=== PATIENT | male | born 1960 | race Hispanic/Latino ===

== ENCOUNTER 2017-03-18 08:26 | Emergency (ER) | payer SELFPAY ==
[2017-03-18 08:41] VITALS: BP 133/79
[2017-03-18] MEDS ORDERED: MOTRIN PO ONE (11:20)
--- NOTE | 2017-03-18 11:50 | XRay Report ---
Left knee 3 views: History: Pain and swelling. Findings: Minimal narrowing of the medial compartment and patellofemoral compartment knee joint. Sclerotic articular surface with early degenerative change. No fracture. No soft tissue calcification. No joint effusion. Impression: Mild degenerative changes medial and patellofemoral compartment knee joint. Incidentally noted deformity of the proximal diaphysis of fibula probably related to old injury.
--- NOTE | 2017-03-18 18:41 | Emergency Department Report ---
Entered by NGA MURRIETA, acting as scribe for NTAHALIE CONTEH NP. ED Lower Extremity HPI - General Chief Complaint: Extremity Injury, Lower Stated Complaint: KNEE PAIN Time Seen by Provider: 03/18/17 11:15 Source: patient Mode of arrival: Ambulatory Limitations: No Limitations - History of Present Illness Initial Comments: This is a 57 y/o male, nontoxic, well nourished in appearance, no acute signs of distress presents with chronic intermittent left knee pain x 1 week. Associated symptoms include swelling but he denies fever, chills, numbness, tingling, back pain, joint swelling, chest pain, SOB, cough, calf swelling and calf pain. Patient denies long car rides, recent travels, or recent hospital stays. Pain is described as aching, stabbing and 8/10 on a severity scale. Patient stated has been walking this past month more then usual. Denies any injury. No alleviating or aggravating factors. NKDA. STODDARD Complaint: other (left knee pain) Onset/Timin -: week(s) Injury: Knee: Left Place: home Severity: moderate Severity scale (0 -10): 8 Improves With: nothing Worsens With: nothing Associated Symptoms: ambulatory. denies: snap/pop sensation, swelling, numbness , tingling, unable to bear weight, able to partially bear weight - Related Data Previous Rx's Medication Instructions Recorded Last Taken Type Ibuprofen [Motrin 600 MG tab] 600 mg PO Q8H PRN #20 tablet 03/18/17 Unknown Rx predniSONE [Deltasone] 20 mg PO BID #10 tab 03/18/17 Unknown Rx Allergies Allergy/AdvReac Type Severity Reaction Status Date / Time acetaminophen Allergy Unknown Verified 12/20/15 08:42 [From Darvocet-N] propoxyphene napsylate Allergy Unknown Verified 12/20/15 08:42 [From Darvocet-N] ED Review of Systems Comment: All other systems reviewed and negative Constitutional: denies: chills, fever Eyes: denies: eye pain, eye discharge, vision change ENT: denies: ear pain, throat pain Respiratory: denies: cough, shortness of breath, wheezing Cardiovascular: denies: chest pain, palpitations Endocrine: no symptoms reported Gastrointestinal: denies: abdominal pain, nausea, diarrhea Genitourinary: denies: urgency, dysuria Musculoskeletal: denies: back pain, joint swelling, myalgia Skin: denies: rash, lesions Neurological: denies: numbness Psychiatric: denies: anxiety, depression Hematological/Lymphatic: denies: easy bleeding, easy bruising ED Past Medical Hx - Past Medical History Previous Medical History?: Yes Hx Hypertension: Yes - Surgical History Past Surgical History?: No - Social History Smoking Status: Current Some Day Smoker Substance Use Type: None - Medications Home Medications: Home Medications Medication Instructions Recorded Confirmed Last Taken Type Ibuprofen [Motrin 600 MG tab] 600 mg PO Q8H PRN #20 tablet 03/18/17 Unknown Rx predniSONE [Deltasone] 20 mg PO BID #10 tab 03/18/17 Unknown Rx ED Physical Exam - General Limitations: No Limitations General appearance: alert, in no apparent distress - Head Head exam: Present: atraumatic, normocephalic, normal inspection - Eye Eye exam: Present: normal appearance, PERRL, EOMI. Absent: scleral icterus, conjunctival injection, nystagmus, periorbital swelling, periorbital tenderness Pupils: Present: normal accommodation - ENT ENT exam: Present: normal exam, normal orophraynx, mucous membranes moist, TM's normal bilaterally, normal external ear exam - Neck Neck exam: Present: normal inspection, full ROM. Absent: tenderness, meningismus, lymphadenopathy, thyromegaly - Respiratory Respiratory exam: Present: normal lung sounds bilaterally. Absent: respiratory distress, wheezes, rales, rhonchi, stridor, chest wall tenderness, accessory muscle use, decreased breath sounds, prolonged expiratory - Cardiovascular Cardiovascular Exam: Present: regular rate, normal rhythm, normal heart sounds. Absent: bradycardia, tachycardia, irregular rhythm, systolic murmur, diastolic murmur, rubs, gallop - GI/Abdominal GI/Abdominal exam: Present: soft, normal bowel sounds. Absent: distended, tenderness, guarding, rebound, rigid, diminished bowel sounds - Rectal Rectal exam: Present: deferred - Extremities Exam Extremities exam: Present: normal inspection, full ROM, normal capillary refill. Absent: tenderness, pedal edema, joint swelling, calf tenderness - Expanded Lower Extremity Exam Left Hip exam: Present: normal inspection, full ROM. Absent: tenderness, swelling, abrasion, laceration, ecchymosis, deformity, crepidus, dislocation, erythema, external rotation, internal rotation, shortening Upper Leg exam: Present: normal inspection, full ROM. Absent: tenderness, swelling, abrasion, laceration, ecchymosis, deformity, crepidus, dislocation, erythema Knee exam: Present: normal inspection, full ROM, full knee extension. Absent: tenderness, swelling, abrasion, laceration, ecchymosis, deformity, crepidus, dislocation, erythema, effusion, pain w/ pronation/supination, posterior draw sign, pain/laxity with valgus, pain/laxity with varus Lower Leg exam: Present: normal inspection, full ROM. Absent: tenderness, swelling, abrasion, laceration, ecchymosis, deformity, crepidus, dislocation, erythema, palpable cord, Matteo's sign Ankle exam: Present: normal inspection, full ROM. Absent: tenderness, swelling , abrasion, laceration, ecchymosis, deformity, crepidus, dislocation, erythema, anterior draw sign Foot/Toe exam: Present: normal inspection, full ROM. Absent: tenderness, swelling, abrasion, laceration, ecchymosis, deformity, crepidus, dislocation, erythema, amputation, puncture wound, foreign body, calcaneal tenderness, tenderness at base of 5th metatarsal, nail avulsion, subungual hematoma Neuro vascular tendon exam: Present: no vascular compromise. Absent: pulse deficit, abnormal cap refill, motor deficit, sensory deficit, tendon deficit, extremity cold to touch, pallor, abnormal 2-point discrimination, decreased fine /light touch, foot drop, peroneal nerve deficit, significant pain with passive ROM of distal joint Gait: Positive: observed and normal - Back Exam Back exam: Present: normal inspection, full ROM. Absent: tenderness, CVA tenderness (R), CVA tenderness (L), muscle spasm, paraspinal tenderness, vertebral tenderness, rash noted - Neurological Exam Neurological exam: Present: alert, oriented X3, CN II-XII intact, normal gait, reflexes normal - Psychiatric Psychiatric exam: Present: normal affect, normal mood - Skin Skin exam: Present: warm, dry, intact, normal color. Absent: rash ED Course Vital Signs 03/18/17 08:36 Temperature 98.8 F Pulse Rate 83 Respiratory 24 Rate Blood Pressure 133/79 O2 Sat by Pulse 98 Oximetry - Reevaluation(s) Reevaluation #1: 03/18/17 12:11 Patient is able to speak in full sentences with no signs of distress noted,. ED Lower Extremity MDM - Medical Decision Making Ed course: This is a 57-year-old male that presents with chronic intermittent knee pain 1- patient was examined by myself. X-ray of left knee has been obtained and dictated by Dr. Olivas. Impression; mild degenerative changes with compartment knee joint. Proximal diaphysis of fibula related to old injury. Patient stated he is aware of the fibula fracture that occurred about 20 years ago on monkey bars. 2- Patient received a ibuprofen and Amanuel wrap to left knee 3- patient received ibuprofen as well as prednisone 5 days. 4- patient was instructed to follow up with her primary care doctor/orthopedic in 3-5 days or symptoms such as numbness, tingling, joint redness, calf pain, joint swelling, chest pain or shortness of breath return to emergency room as was possible 5- At time time of discharge, the patient does not seem toxic or ill in appearance. No acute signs of distress noted. Patient agrees to discharge treatment plan of care. No further questions noted by the patient. 6- pt was instructed to RICE therapy ED Disposition Clinical Impression: Knee pain Qualifiers: Chronicity: chronic Laterality: left Qualified Code(s): M25.562 - Pain in left knee; G89.29 - Other chronic pain Disposition: DC-01 TO HOME OR SELFCARE Is pt being admited?: No Does the pt Need Aspirin: No Condition: Stable Instructions: Arthralgia (ED), Knee Pain (ED), Prednisone (By mouth), Ibuprofen (By mouth), RICE Therapy (ED) Additional Instructions: follow up with a primary care doctor/orthopedic in 3-5 days or symptoms such as numbness, tingling, joint redness, calf pain, joint swelling, chest pain or shortness of breath return to emergency room as was possible Rest, elevate, ice extremity. Prescriptions: Ibuprofen [Motrin 600 MG tab] 600 mg PO Q8H PRN #20 tablet PRN Reason: Pain predniSONE [Deltasone] 20 mg PO BID #10 tab Referrals: PRIMARY MD AMY [Primary Care Provider] - 3-5 Days NORMAN ELI MD [Staff Physician] - 3-5 Days [facility] [Outside] - 3-5 Days [facility] [Outside] - 3-5 Days Forms: Work/School Release Form(ED) This documentation as recorded by the GLENNY olivas ELIZABETH,accurately reflects the service I personally performed and the decisions made by me,NATHALIE CONTEH, MARIELA.
== END 2017-03-18 12:15 | disposition home or self-care (01) ==
LOC: ED 08:26
DX: M25.562 Pain in left knee (principal); G89.29 Other chronic pain; I10 Essential (primary) hypertension; Z72.0 Tobacco use; Z88.8 Allergy status to other drugs, medicaments and biological substances

== ENCOUNTER 2017-03-25 11:12 | Emergency (ER) | payer SELFPAY ==
[2017-03-25] MEDS ORDERED: TORADOL IM ONE (13:39)
[2017-03-25] MEDS ORDERED: DELTASONE PO ONE (13:39)
--- NOTE | 2017-03-25 13:39 | Emergency Department Report ---
ED Back Pain/Injury HPI - General Chief Complaint: Back Pain/Injury Stated Complaint: BACK PAIN Time Seen by Provider: 03/25/17 13:11 Source: patient Limitations: No Limitations - History of Present Illness Initial Comments: Patient here reports that he is having lower back pain on the left side that started this morning. Patient denies any injury. Denies any urinary burning frequency urgency. Denies any nausea or vomiting. Denies any abdominal pain. Patient said he has had a history of arthritis and he was here last week and they put him on prednisone and ibuprofen. He said his pain is 7 out of 10 and it comes and goes in his lower back. Patient has a history of high blood pressure but he said he doesn't take any blood pressure medication. He said he does not follow with and he does not have a doctor. Patient has a history of chronic pain in multiple sites from arthritis. Pain is worst walking and better with rest. Pain feels achy. Denies any loss of bowel or bladder function. Neither any numbness or tingling to extremity. MD Complaint: back pain -: This morning Similar Symptoms Previously: Yes Place: home Radiation: none Severity: severe Severity scale (0 -10): 7 Quality: aching Consistency: intermittent Improves With: immobilization Worsens With: walking Context: other (patient has a history of chronic pain) Associated Symptoms: denies: confusion, weakness, chest pain, numbness, difficulty walking, cough, difficulty urinating, diaphoresis, incontinence, fever/chills, constipation, headaches, abdominal pain, loss of appetite, malaise , nausea/vomiting, rash, seizure, shortness of breath, syncope Treatments Prior to Arrival: other (none) - Related Data Previous Rx's Medication Instructions Recorded Last Taken Type Ibuprofen [Motrin 600 MG tab] 600 mg PO Q8H PRN #20 tablet 03/18/17 Unknown Rx predniSONE [Deltasone] 20 mg PO BID #10 tab 03/18/17 Unknown Rx Allergies Allergy/AdvReac Type Severity Reaction Status Date / Time acetaminophen Allergy Unknown Verified 12/20/15 08:42 [From Darvocet-N] propoxyphene napsylate Allergy Unknown Verified 12/20/15 08:42 [From Darvocet-N] ED Review of Systems ROS: Stated complaint: BACK PAIN Other details as noted in HPI Comment: All other systems reviewed and negative Constitutional: denies: chills, fever Eyes: denies: vision change Respiratory: no symptoms reported Cardiovascular: denies: chest pain, palpitations, edema, syncope Gastrointestinal: denies: abdominal pain, nausea, vomiting, diarrhea, constipation Genitourinary: denies: urgency, dysuria, frequency, hematuria, discharge Musculoskeletal: back pain. denies: joint swelling, arthralgia, myalgia Skin: denies: rash Neurological: denies: headache, weakness, numbness, paresthesias, confusion, abnormal gait, vertigo ED Past Medical Hx - Past Medical History Previous Medical History?: Yes Hx Hypertension: Yes Hx Arthritis: Yes - Surgical History Past Surgical History?: No - Family History Family history: no significant - Social History Smoking Status: Current Some Day Smoker Substance Use Type: Alcohol Other Social History: - Medications Home Medications: Home Medications Medication Instructions Recorded Confirmed Last Taken Type Ibuprofen [Motrin 600 MG tab] 600 mg PO Q8H PRN #20 tablet 03/18/17 Unknown Rx predniSONE [Deltasone] 20 mg PO BID #10 tab 03/18/17 Unknown Rx ED Physical Exam - General Limitations: No Limitations General appearance: alert, in no apparent distress - Head Head exam: Present: atraumatic, normocephalic, normal inspection - Eye Eye exam: Present: normal appearance, PERRL, EOMI Pupils: Present: normal accommodation - ENT ENT exam: Present: normal exam, normal orophraynx, mucous membranes moist - Neck Neck exam: Present: normal inspection, full ROM. Absent: tenderness, meningismus, lymphadenopathy - Expanded Neck Exam Expanded Neck exam: Absent: tenderness, midline deformity, anterior neck swelling - Respiratory Respiratory exam: Present: normal lung sounds bilaterally. Absent: respiratory distress, chest wall tenderness - Cardiovascular Cardiovascular Exam: Present: regular rate, normal rhythm, normal heart sounds - GI/Abdominal GI/Abdominal exam: Present: soft, normal bowel sounds. Absent: distended, tenderness, guarding, rebound, rigid - Extremities Exam Extremities exam: Present: normal inspection, full ROM, normal capillary refill. Absent: tenderness, pedal edema, joint swelling, calf tenderness - Back Exam Back exam: Present: normal inspection, full ROM, CVA tenderness (L). Absent: tenderness, CVA tenderness (R), muscle spasm, paraspinal tenderness, vertebral tenderness, rash noted - Expanded Back Exam Expanded Back exam: Absent: saddle anesthesia Back exam: Negative Straight Leg Raising: Left, Right - Neurological Exam Neurological exam: Present: alert, oriented X3, normal gait, reflexes normal. Absent: motor sensory deficit - Expanded Neurological Exam Expanded Neurological exam: Absent: innattentive, memory loss-remote event, memory loss- recent event, ataxia, receptive aphasia, expressive aphasia, total aphasia, tremor, protecting the airway Patient oriented to: Present: person, place, time Speech: Present: fluid speech Cranial nerves: EOM's Intact: Normal, Gag Reflex: Normal, Tongue Deviation: Normal, Nystagmus: Normal, Facial Sensation: Normal Cerebellar function: Romberg: Normal Upper motor neuron: Pronator Drift: Normal, Sensory Extinction: Normal Sensory exam: Upper Extremity Light Touch: Normal, Upper Extremity Pin Prick: Normal, Upper Extremity Temperature: Normal, UE 2 Point Discrimination: Normal, Lower Extremity Light Touch: Normal, Lower Extremity Pin Prick: Normal, Lower Extremity Temperature: Normal, LE 2 Point Discrimination: Normal Motor strength exam: RUE: 5, LUE: 5, RLE: 5, LLE: 5 DTR: bicep (R): 2+, bicep (L): 2+, tricep (R): 2+, tricep (L): 2+, knee (R): 2+ , knee (L): 2+, ankle (R): 2+, ankle (L): 2+ Best Eye Response (Gregg): (4) open spontaneously Best Motor Response (Gregg): (6) obeys commands Best Verbal Response (Gregg): (5) oriented [place] Total: 15 - Psychiatric Psychiatric exam: Present: normal affect, normal mood - Skin Skin exam: Present: warm, dry, intact, normal color. Absent: rash ED Course Vital Signs 03/25/17 03/25/17 03/25/17 11:25 13:50 14:00 Temperature 97.6 F Pulse Rate 57 L 63 90 Respiratory 16 18 Rate Blood Pressure 181/108 175/80 Blood Pressure 164/102 [Left] O2 Sat by Pulse 98 95 Oximetry 03/25/17 15:51 Temperature Pulse Rate Respiratory Rate Blood Pressure Blood Pressure 159/98 [Left] O2 Sat by Pulse Oximetry - Reevaluation(s) Reevaluation #1: 03/25/17 14:26 given Toradol 30 mg IM, Deltasone 60 mg by mouth and clonidine 0.1 mg by mouth and emergency room. We will recheck pressure. Urinalysis pending. Reevaluation #2: 03/25/17 17:30 Patient with positive bacteria in urine at 1+ and positive calcium oxalate. Negative leuks, negative white blood cell. Negative blood. Patient with positive CVA tenderness. CT of abdomen and pelvis was done and shows no hydronephrosis or kidney stones. Patient will mild to moderate constipation. 03/25/17 19:32 ED Medical Decision Making - Lab Data Lab Results 03/25/17 Range/Units 13:57 Urine Color Yellow (Yellow) Urine Turbidity Clear (Clear) Urine pH 5.0 (5.0-7.0) Ur Specific [place] 1.031 H (1.003-1.030) Urine Protein <15 mg/dl (Negative) mg/dL Urine Glucose (UA) Neg (Negative) mg/dL Urine Ketones Neg (Negative) mg/dL Urine Blood Neg (Negative) Urine Nitrite Neg (Negative) Urine Bilirubin Neg (Negative) Urine Urobilinogen < 2.0 (<2.0) mg/dL Ur Leukocyte Esterase Neg (Negative) Urine WBC (Auto) 1.0 (0.0-6.0) /HPF Urine RBC (Auto) 9.0 (0.0-6.0) /HPF U Epithel Cells (Auto) < 1.0 (0-13.0) /HPF Urine Bacteria (Auto) 1+ (Negative) /HPF Calcium Oxalate Crystal Few Urine Mucus Few /HPF Urine culture pending - Radiology Data Radiology results: report reviewed CT abdomen and pelvis shows mild to moderate constipation. Kidney stones or hydronephrosis - Medical Decision Making MDM: ED course: She presented to the emergency room with left lower back pain that started this morning in. He's had similar episode of back pain in the past and was here on 03/18 2017 and treated per patient for arthritis with Motrin and prednisone. Patient did not have any injury but he did have CVA tenderness therefore urinalysis done which was negative for hematuria, positive for bacteria, positive for calcium oxalate, no white blood cell and no leukocyte Estrace. Patient was given Toradol and Deltasone emergency room to manage pain. He was also given clonidine for elevated blood pressure with history of high blood pressure. Pressure had stabilized. Patient reports that this pain was down to 3 out of 10. Diagnostics/lab: Scan of the abdomen and pelvis without contrast revealed constipation and no kidney stones or hydronephrosis. Urinalysis revealed 1+ bacteria without any white blood cells or hematuria. Patient did have calcium oxalate in urine. Urine culture is pending. Diagnosis: Constipation, left lower back pain, elevated blood pressure reading with history of hypertension MEDS: Given Toradol 30 mg IM and Deltasone 60 mg by mouth for back pain which is PAIN IS reduced to 3 out of 10. He was given clonidine 0.1 mg by mouth for elevated blood pressure and his blood pressure is better. I went in room to give patient his CT scan results and discharge diagnoses with treatment plan and patient was not in his room. I was told by nurse that patient walked out if emergency room. Patient left after being seen by provider. I tried to call patient via phone to allow him to return to get his discharge instructions and paperwork and phone was just ringing without any OPPORTUNITY leave message. Critical care attestation.: If time is entered above; I have spent that time in minutes in the direct care of this critically ill patient, excluding procedure time. ED Disposition Clinical Impression: Acute exacerbation of chronic low back pain, Elevated systolic blood pressure reading with diagnosis of hypertension Constipation Qualifiers: Constipation type: unspecified constipation type Qualified Code(s): K59.00 - Constipation, unspecified Disposition: ELOPED Is pt being admited?: No Does the pt Need Aspirin: No Condition: Stable Instructions: Back Pain (ED), Constipation (ED), Hypertension (ED)
[2017-03-25] MEDS ORDERED: CATAPRES PO ONE (13:42)
[2017-03-25 14:40] LABS: Bacteria,Urine 1+ /HPF (Negative); Bilirubin,Urine NEG (Negative); Blood,Urine NEG (Negative); Ketones,Urine NEG (Negative); Leukocyte Esterase,Urine NEG (Negative); Mucus,Urine FEW /HPF; Nitrite,Urine NEG (Negative); Protein,Urine <15 mg/dL mg/dL (Negative); Urobilinogen,Urine < 2.0 mg/dL (<2.0)
[2017-03-25 15:52] VITALS: BP 159/98
--- NOTE | 2017-03-25 16:28 | Cat Scan Report ---
FINAL REPORT PROCEDURE: CT ABDOMEN PELVIS WO CON TECHNIQUE: Computerized axial tomography of the abdomen and pelvis was performed without intravenous contrast. This study is performed without intravascular contrast material and its sensitivity for abdominal and pelvic pathology, including neoplasms, inflammation, abscess, free fluid, thrombosis, arterial dissection and infarction, is reduced compared with a contrast enhanced study. HISTORY: flank pain COMPARISON: No prior studies are available for comparison. FINDINGS: Visualized lower thorax: No significant abnormality. Liver: Normal size and attenuation. Spleen: Normal size and attenuation. Gallbladder and biliary system: Normal. Pancreas: Normal. Adrenals: Normal. Kidneys: No hydronephrosis or urolithiasis. GI tract: Appendix is visualized and does not appear inflamed. Mild to moderate volume of stool is seen throughout the colon, compatible with constipation. No bowel obstruction or acute inflammation is seen. Lymph nodes and mesentery: Normal. Vasculature: Diffuse atherosclerotic calcification of the abdominal aorta. Bladder: Normal. Reproductive organs: Prostate calcifications are noted. Peritoneum: No free fluid. Musculoskeletal structures: Degenerative disc changes of the thoracolumbar spine. Other: None. IMPRESSION: Mild to moderate constipation.
== END 2017-03-25 15:50 | disposition left against medical advice (07) ==
LOC: ED 11:12
DX: M54.5 Low back pain (principal); K59.00 Constipation, unspecified; I10 Essential (primary) hypertension; M19.90 Unspecified osteoarthritis, unspecified site; Z72.0 Tobacco use; Z88.8 Allergy status to other drugs, medicaments and biological substances
CPT/HCPCS: 74176; 81001; 87086; 96372; 99284; J1885; J7512

== ENCOUNTER 2017-04-30 09:52 | Emergency (ER) | payer SELFPAY ==
--- NOTE | 2017-04-30 10:02 | Emergency Department Report ---
Chief Complaint: Abdominal Pain Stated Complaint: ABD PAIN Time Seen by Provider: 04/30/17 10:00 - HPI History of Present Illness: PT c/o LUQ abd pain since yesterday. Pt states he drank a few beers last night. - ROS Review of Systems: - n/v/d - Exam Physical Exam: abd soft, luq ttp MSE screening note: Focused history and physical exam performed. Due to findings the following was ordered: labs ED Disposition for MSE Condition: Stable
[2017-04-30 10:17] LABS: Basophils % (Auto) 0.8 % (0.0-1.8); Eosinophils % (Auto) 4.6 % (0.0-4.3); Hematocrit 47.7 % (35.5-45.6); Hemoglobin 15.9 gm/dl (11.8-15.2); Mean Corpuscular HGB Conc 33 % (32-34); Mean Corpuscular Hemoglobin 30 pg (28-32); Mean Corpuscular Volume 90 fl (84-94); Platelet Count 220 K/mm3 (140-440); Red Blood Count 5.32 M/mm3 (3.65-5.03); Red Cell Distribution Width 13.5 % (13.2-15.2); White Blood Count 8.8 K/mm3 (4.5-11.0)
[2017-04-30 10:34] LABS: Alanine Aminotransferase 30 units/L (7-56); Albumin 4.3 g/dL (3.9-5); Albumin/Globulin Ratio 1.5 %; Alkaline Phosphatase 75 units/L (35-129); Anion Gap 17 mmol/L; Blood Urea Nitrogen 14 mg/dL (9-20); Calcium 8.5 mg/dL (8.4-10.2); Carbon Dioxide 25 mmol/L (22-30); Chloride 103.9 mmol/L (98-107); Glucose 116 mg/dL (75-100); Lipase 105 units/L (13-60); Potassium 4.5 mmol/L (3.6-5.0); Sodium 141 mmol/L (137-145); Total Protein 7.1 g/dL (6.3-8.2)
[2017-04-30 11:25] LABS: Bilirubin,Urine NEG (Negative); Blood,Urine SM (Negative); Ketones,Urine NEG (Negative); Leukocyte Esterase,Urine NEG (Negative); Mucus,Urine FEW /HPF; Nitrite,Urine NEG (Negative); Protein,Urine <15 mg/dL mg/dL (Negative); WBC,Urine < 1.0 /HPF (0.0-6.0)
[2017-04-30] MEDS ORDERED: ZOFRAN IV ONE (11:48)
[2017-04-30] MEDS ORDERED: MORPHINE IV ONE (11:48)
[2017-04-30] MEDS ORDERED: NACL ONE (13:02)
--- NOTE | 2017-04-30 13:57 | Cat Scan Report ---
CT abdomen and pelvis with contrast: Left upper quadrant pain. Transverse images are obtained from lower chest to the ischium following IV contrast administration. Coronal and sagittal 2-D reformatted images were. The visualized lung bases are unremarkable. The abdominal and retroperitoneal organs are normal. The abdominal aorta and iliac vessels contain significant mural calcification but has a normal sizes and contours. There is mild dilatation of the distal abdominal aorta with a maximum diameter of 2.7 cm. The unopacified bowel and mesentery appear normal. The appendix is visualized. No abnormal fluid accumulation and no free air is noted. No obvious adenopathy. Sections through the pelvis demonstrate calcification of a normal sized prostate gland. Mild posterior spondylosis identified from L2-3 through L4-5 levels. Impressions: Degenerative abdominal aortic changes. Otherwise, unremarkable exam for age.
[2017-04-30 14:42] VITALS: BP 172/94
--- NOTE | 2017-04-30 14:55 | Emergency Department Report ---
ED Abdominal Pain HPI - General Chief Complaint: Abdominal Pain Stated Complaint: ABD PAIN Time Seen by Provider: 04/30/17 10:00 Source: patient Mode of arrival: Ambulatory Limitations: No Limitations - History of Present Illness Initial Comments: Patient complains of left upper quadrant abdominal pain since yesterday. He states he drank 2 beers yesterday. He states he's been to another hospital within the last year similar complaints. He did not have any imaging studies. He states that he thinks that we have already done more lab tests and they did over there. He did not follow-up on his condition which apparently has been somewhat recurrent. He denies nonsteroidals. He denies any signs of GI bleeding. He denies nausea vomiting or diarrhea. He said no fever or chills. MD Complaint: abdominal pain -: Gradual, month(s) Location: LUQ Radiation: none Migration to: no migration Severity: moderate Quality: aching Consistency: intermittent Improves With: nothing Worsens With: nothing Context: other (EtOH) Associated Symptoms: denies other symptoms - Related Data Previous Rx's Medication Instructions Recorded Last Taken Type Ibuprofen [Motrin 600 MG tab] 600 mg PO Q8H PRN #20 tablet 03/18/17 Unknown Rx predniSONE [Deltasone] 20 mg PO BID #10 tab 03/18/17 Unknown Rx Lansoprazole [Prevacid] 15 mg PO BID #30 cap 04/30/17 Unknown Rx traMADol [Ultram] 50 mg PO Q6HR PRN #14 tablet 04/30/17 Unknown Rx Allergies Allergy/AdvReac Type Severity Reaction Status Date / Time acetaminophen Allergy Seizure Verified 04/30/17 09:56 [From Darvocet-N] cyclobenzaprine HCl Allergy Itching Verified 04/30/17 09:56 [From Flexeril] propoxyphene napsylate Allergy Seizure Verified 04/30/17 09:56 [From Darvocet-N] ED Review of Systems ROS: Stated complaint: ABD PAIN Other details as noted in HPI Constitutional: denies: chills, fever Eyes: denies: eye pain, eye discharge, vision change ENT: denies: ear pain, throat pain Respiratory: denies: cough, shortness of breath, wheezing Cardiovascular: denies: chest pain, palpitations Endocrine: no symptoms reported Gastrointestinal: as per HPI, abdominal pain. denies: nausea, vomiting, diarrhea, hematemesis, melena, hematochezia Genitourinary: denies: urgency, dysuria Musculoskeletal: denies: back pain, joint swelling, arthralgia Skin: denies: rash, lesions Neurological: denies: headache, weakness, paresthesias Psychiatric: denies: anxiety, depression Hematological/Lymphatic: denies: easy bleeding, easy bruising ED Past Medical Hx - Past Medical History Hx Hypertension: Yes (NONCOMPLIANT W/ MEDS) Hx Arthritis: Yes (KNEES) Additional medical history: CHRONIC BACK PAIN - Surgical History Past Surgical History?: No - Social History Smoking Status: Current Every Day Smoker Substance Use Type: Alcohol - Medications Home Medications: Home Medications Medication Instructions Recorded Confirmed Last Taken Type Ibuprofen [Motrin 600 MG tab] 600 mg PO Q8H PRN #20 tablet 03/18/17 Unknown Rx predniSONE [Deltasone] 20 mg PO BID #10 tab 03/18/17 Unknown Rx Lansoprazole [Prevacid] 15 mg PO BID #30 cap 04/30/17 Unknown Rx traMADol [Ultram] 50 mg PO Q6HR PRN #14 tablet 04/30/17 Unknown Rx ED Physical Exam - General Limitations: No Limitations General appearance: alert, in no apparent distress - Head Head exam: Present: atraumatic, normocephalic - Eye Eye exam: Present: normal appearance, PERRL, EOMI. Absent: scleral icterus - ENT ENT exam: Present: mucous membranes moist - Neck Neck exam: Present: normal inspection - Respiratory Respiratory exam: Present: normal lung sounds bilaterally. Absent: respiratory distress - Cardiovascular Cardiovascular Exam: Present: regular rate, normal rhythm. Absent: systolic murmur, diastolic murmur, rubs, gallop - GI/Abdominal GI/Abdominal exam: Present: soft, tenderness (very mild left upper quadrant discomfort to palpation without peritoneal signs), normal bowel sounds. Absent : distended, guarding, rebound, rigid, organomegaly, mass, bruit, pulsatile mass , hernia - Rectal Rectal exam: Present: deferred - Extremities Exam Extremities exam: Present: normal inspection - Back Exam Back exam: Present: normal inspection - Neurological Exam Neurological exam: Present: alert, oriented X3 - Psychiatric Psychiatric exam: Present: normal affect, normal mood - Skin Skin exam: Present: warm, dry, intact, normal color. Absent: rash ED Course Vital Signs 04/30/17 04/30/17 04/30/17 09:59 12:31 14:41 Temperature 97.8 F 97.7 F Pulse Rate 62 52 L 45 L Respiratory 17 14 17 Rate Blood Pressure 196/98 Blood Pressure 183/88 172/94 [Left] O2 Sat by Pulse 99 96 97 Oximetry - Reevaluation(s) Reevaluation #1: Patient's heart rate ranged from the high 40s to low 70s. He had no symptoms associated with bradycardia. He remained stable in the emergency department otherwise hemodynamically. He is appropriate for outpatient management. I think gastritis is a likely possibility. He'll be instructed to avoid gastric irritants. 04/30/17 14:55 Reevaluation #2: Patient's repeat blood pressure was 160/87. He was directed to recheck with the [facility]. 04/30/17 15:22 ED Medical Decision Making - Lab Data Result diagrams: 04/30/17 10:04 04/30/17 10:04 Laboratory Results - last 24 hr 04/30/17 04/30/17 04/30/17 10:04 10:04 10:47 WBC 8.8 RBC 5.32 H Hgb 15.9 H Hct 47.7 H MCV 90 MCH 30 MCHC 33 RDW 13.5 Plt Count 220 Lymph % (Auto) 29.6 [place] % (Auto) 7.5 H Eos % (Auto) 4.6 H Baso % (Auto) 0.8 Lymph # 2.6 [place] # 0.7 Eos # 0.4 Baso # 0.1 Seg Neutrophils % 57.5 Seg Neutrophils # 5.0 Sodium 141 Potassium 4.5 Chloride 103.9 Carbon Dioxide 25 Anion Gap 17 BUN 14 Creatinine 0.8 Estimated GFR > 60 BUN/Creatinine Ratio 17.50 Glucose 116 H Calcium 8.5 Total Bilirubin 0.40 AST 26 ALT 30 Alkaline Phosphatase 75 Total Protein 7.1 Albumin 4.3 Albumin/Globulin Ratio 1.5 Lipase 105 H Urine Color Yellow Urine Turbidity Clear Urine pH 5.0 Ur Specific [place] 1.020 Urine Protein <15 mg/dl Urine Glucose (UA) Neg Urine Ketones Neg Urine Blood Sm Urine Nitrite Neg Urine Bilirubin Neg Urine Urobilinogen 2.0 Ur Leukocyte Esterase Neg Urine WBC (Auto) < 1.0 Urine RBC (Auto) 3.0 Urine Mucus Few - EKG Data -: EKG Interpreted by Me EKG shows normal: sinus rhythm, axis, intervals, QRS complexes, ST-T waves Rate: normal - EKG Data Interpretation: no acute changes - Radiology Data Radiology results: report reviewed interpreted by me: CT showed no acute process Critical care attestation.: If time is entered above; I have spent that time in minutes in the direct care of this critically ill patient, excluding procedure time. ED Disposition Clinical Impression: Abdominal pain Qualifiers: Abdominal location: left upper quadrant Qualified Code(s): R10.12 - Left upper quadrant pain Gastritis Qualifiers: Gastritis type: other gastritis Chronicity: unspecified Gastritis bleeding: without bleeding Qualified Code(s): K29.60 - Other gastritis without bleeding Disposition: - TO HOME OR SELFCARE Is pt being admited?: No Does the pt Need Aspirin: No Condition: Stable Instructions: Gastritis (ED), Abdominal Pain (ED) Additional Instructions: Stomach irritants like alcohol aspirin Advil Aleve. Follow-up with the primary care physician. [id number] Pepcid if you cannot afford the prescription medication. Return any acute change or worsening. Prescriptions: Lansoprazole [Prevacid] 15 mg PO BID #30 cap traMADol [Ultram] 50 mg PO Q6HR PRN #14 tablet PRN Reason: Pain Referrals: [facility] [Provider Group] - 3-5 Days PRIMARY CARE, [Primary Care Provider] - 3-5 Days Time of Disposition: 14:56
[2017-04-30] MEDS ORDERED: ULTRAM PO ONE (15:12)
== END 2017-04-30 15:40 | disposition home or self-care (01) ==
LOC: ED 09:52
DX: K29.60 Other gastritis without bleeding (principal); R10.12 Left upper quadrant pain; I10 Essential (primary) hypertension; F17.200 Nicotine dependence, unspecified, uncomplicated
CPT/HCPCS: 36415; 74177; 80053; 81001; 83690; 85025; 93005; 93010; 96374; 96375; 99284; J2270; J2405; Q9967

== ENCOUNTER 2017-10-05 10:39 | Emergency (ER) | payer SELFPAY ==
--- NOTE | 2017-10-05 14:47 | Emergency Department Report ---
Chief Complaint: Abdominal Pain Stated Complaint: ABD PAIN Time Seen by Provider: 10/05/17 14:25 - HPI History of Present Illness: reports that he has had LUQ pain, for 5 months, says it "hurts real bad." Squeezing sensation in the LUQ. denies nvd. PMHx: Sciatica, neuropathy, back pain, deviated septum, GERD, HTN but doesn't take medicine for it. States he can 't afford to go to a doctor. Used to take lisinopril. I reviewed his previous Ct and it does show a abdominal aortic dilatation of 2.7cm in 04/2017 - ROS Review of Systems: Otherwise negative - Exam Vital Signs: Vital Signs 10/05/17 11:34 Temperature 98.3 F Pulse Rate 74 Respiratory 16 Rate Blood Pressure 161/103 O2 Sat by Pulse 94 Oximetry Physical Exam: mild distress, does have wheezing, generalized tenderness to the abdomen, no rebound, no guarding. MSE screening note: Focused history and physical exam performed. Due to findings the following was ordered: He will need a work up today. His O2 sats are 94%, he is wheezing, and has abd pain that seems significant. ED Disposition for MSE Condition: Stable Referrals: PRIMARY CARE, [Primary Care Provider] - 3-5 Days
[2017-10-05] MEDS ORDERED: ZOFRAN IV ONE (14:52)
[2017-10-05] MEDS ORDERED: MORPHINE IV ONE ×2 (14:54→18:40)
[2017-10-05 15:41] LABS: BUN/Creatinine Ratio 22; Blood Urea Nitrogen 13 mg/dL (9-20); Calcium 8.8 mg/dL (8.4-10.2); Hemolysis Index 29
[2017-10-05 15:44] LABS: Albumin 4.3 g/dL (3.9-5); Bilirubin,Direct 0.4 mg/dL (0-0.2)
[2017-10-05 15:49] LABS: Basophils # (Auto) 0.1 K/mm3 (0.0-0.1); Basophils % (Auto) 1.4 % (0.0-1.8); Eosinophils # (Auto) 0.2 K/mm3 (0.0-0.4); Eosinophils % (Auto) 3.2 % (0.0-4.3); Hematocrit 48.5 % (35.5-45.6); Hemoglobin 15.8 gm/dl (11.8-15.2); Lymphocytes # (Auto) 2.2 K/mm3 (1.2-5.4); Lymphocytes % (Auto) 31.5 % (13.4-35.0); Mean Corpuscular HGB Conc 33 % (32-34); Mean Corpuscular Hemoglobin 30 pg (28-32); Mean Corpuscular Volume 90 fl (84-94); Monocytes # (Auto) 0.7 K/mm3 (0.0-0.8); Monocytes % (Auto) 9.4 % (0.0-7.3); Platelet Count 215 K/mm3 (140-440); Red Blood Count 5.36 M/mm3 (3.65-5.03); Red Cell Distribution Width 15.1 % (13.2-15.2)
[2017-10-05 16:12] LABS: Bilirubin,Urine NEG (Negative); Blood,Urine NEG (Negative); Color,Urine Yellow (Yellow); Mucus,Urine FEW /HPF; Nitrite,Urine NEG (Negative); Protein,Urine <15 mg/dL mg/dL (Negative)
--- NOTE | 2017-10-05 16:31 | XRay Report ---
FINAL REPORT EXAM: XR CHEST 1V AP HISTORY: Abdominal Pain, WHEEZING,SOB. TECHNIQUE: upright single view chest PRIORS: None. FINDINGS: Cardiac and mediastinal contours are unremarkable. No focal pulmonary infiltrate is identified. No pleural fluid collection seen. Pulmonary vasculature is unremarkable. IMPRESSION: Negative single-view chest
--- NOTE | 2017-10-05 16:38 | Emergency Department Report ---
ED Abdominal Pain HPI - General Chief Complaint: Abdominal Pain Stated Complaint: ABD PAIN Time Seen by Provider: 10/05/17 14:25 Source: patient Mode of arrival: Ambulatory Limitations: No Limitations - History of Present Illness Initial Comments: This is a 57 y.o. male presents with LUQ pain for 5 months. Reports being told to f/u with primary care provider or isolation washer but he didn't have money or a job to follow up. He felt okay for a couple months but now the pain is worse. Reports pain feeling like something is squeezing and worse with elevation of left arm. States it feel like a hard rock in left upper quadrant when pain occurs. Pain is non-radiating. History of low back pain with sciatica, neuropathy, GERD, & HTN. He is currently off blood pressure medication because he could not afford to see a doctor for refills. He was on lisinopril. Denies chest pain or radiating pain, nausea/vomiting, fever, or congestion. MD Complaint: abdominal pain (LUQ) -: month(s) (5) Location: LUQ Radiation: none Migration to: no migration Severity: severe Severity scale (0 -10): 10 Quality: stabbing, sharp Consistency: intermittent Improves With: nothing Worsens With: movement, other (touch) Associated Symptoms: denies other symptoms. denies: nausea, vomiting, diarrhea , fever, constipation, melena, hematuria, anorexia, syncope - Related Data Previous Rx's Medication Instructions Recorded Last Taken Type Ibuprofen [Motrin 600 MG tab] 600 mg PO Q8H PRN #20 tablet 03/18/17 Unknown Rx predniSONE [Deltasone] 20 mg PO BID #10 tab 03/18/17 Unknown Rx Lansoprazole [Prevacid] 15 mg PO BID #30 cap 04/30/17 Unknown Rx traMADol [Ultram] 50 mg PO Q6HR PRN #14 tablet 04/30/17 Unknown Rx Ondansetron [Zofran TAB] 4 mg PO Q8HR PRN #20 tablet 10/05/17 Unknown Rx traMADol [Ultram] 50 mg PO Q6HR PRN #20 tablet 10/05/17 Unknown Rx Allergies Allergy/AdvReac Type Severity Reaction Status Date / Time acetaminophen Allergy Seizure Verified 04/30/17 09:56 [From Darvocet-N] cyclobenzaprine HCl Allergy Itching Verified 04/30/17 09:56 [From Flexeril] propoxyphene napsylate Allergy Seizure Verified 04/30/17 09:56 [From Darvocet-N] ED Review of Systems ROS: Stated complaint: ABD PAIN Other details as noted in HPI Constitutional: denies: chills, fever Respiratory: denies: cough, shortness of breath, wheezing Cardiovascular: denies: chest pain, palpitations Gastrointestinal: abdominal pain (LUQ). denies: nausea, vomiting, diarrhea, constipation Musculoskeletal: denies: back pain, joint swelling, arthralgia Neurological: denies: headache, weakness, paresthesias ED Past Medical Hx - Past Medical History Previous Medical History?: Yes Hx Hypertension: Yes (NONCOMPLIANT W/ MEDS) Hx Arthritis: Yes (KNEES) Additional medical history: CHRONIC BACK PAIN - Surgical History Past Surgical History?: No - Social History Smoking Status: Never Smoker - Medications Home Medications: Home Medications Medication Instructions Recorded Confirmed Last Taken Type Ibuprofen [Motrin 600 MG tab] 600 mg PO Q8H PRN #20 tablet 03/18/17 Unknown Rx predniSONE [Deltasone] 20 mg PO BID #10 tab 03/18/17 Unknown Rx Lansoprazole [Prevacid] 15 mg PO BID #30 cap 04/30/17 Unknown Rx traMADol [Ultram] 50 mg PO Q6HR PRN #14 tablet 04/30/17 Unknown Rx Ondansetron [Zofran TAB] 4 mg PO Q8HR PRN #20 tablet 10/05/17 Unknown Rx traMADol [Ultram] 50 mg PO Q6HR PRN #20 tablet 10/05/17 Unknown Rx ED Physical Exam - General Limitations: No Limitations - ENT ENT exam: Present: mucous membranes moist, other (clear discharge, TM's swollen and red) - Respiratory Respiratory exam: Present: normal lung sounds bilaterally. Absent: respiratory distress - Cardiovascular Cardiovascular Exam: Present: regular rate, normal rhythm. Absent: systolic murmur, diastolic murmur, rubs, gallop - GI/Abdominal GI/Abdominal exam: Present: soft, tenderness (generalized tenderness), normal bowel sounds. Absent: guarding, rebound, rigid, organomegaly, mass - Neurological Exam Neurological exam: Present: alert, oriented X3, normal gait - Skin Skin exam: Present: warm, dry, intact, normal color. Absent: rash ED Course Vital Signs 10/05/17 10/05/17 10/05/17 11:34 15:10 19:42 Temperature 98.3 F 97.9 F Pulse Rate 74 57 L Respiratory 16 20 18 Rate Blood Pressure 161/103 Blood Pressure 147/87 [Left] O2 Sat by Pulse 94 96 Oximetry ED Medical Decision Making - Lab Data Result diagrams: 10/05/17 15:09 10/05/17 15:09 - Radiology Data Radiology results: image reviewed IMPRESSION: Prominence of the common bile duct. If there is concern for biliary obstructive pathology followup MRCP could be obtained Otherwise negative study - Medical Decision Making 57 y.o. male that presents with LUQ pain for 5 months. Patient examined by me. Slightly distressed. CT of abd obtained and read by radiologist. Need followup with MRCP prominence common bile duct. Referral to GI. Ordered UA, BMP, CBC, hepatic panel, lipase, amylase. Received morphine 4 mg IV twice and zofran in ER. Blood pressure elevated. Given hydralazine 20 mg IV once. Restart lisinopril 10 mg po daily. Follow up with [facility]. Discharged home. Discussed plan with patient and agreed with plan. Critical care attestation.: If time is entered above; I have spent that time in minutes in the direct care of this critically ill patient, excluding procedure time. ED Disposition Clinical Impression: Hypertension Qualifiers: Hypertension type: essential hypertension Qualified Code(s): I10 - Essential ( primary) hypertension Abdominal pain Qualifiers: Abdominal location: generalized Qualified Code(s): R10.84 - Generalized abdominal pain Disposition: - TO HOME OR SELFCARE Is pt being admited?: No Does the pt Need Aspirin: No Condition: Stable Instructions: Abdominal Pain (ED), Hypertension (ED) Additional Instructions: Follow up with Gastroenterology in 24-72 hours. If you do not have insurance f/u with [facility] or [facility]. Prescriptions: Ondansetron [Zofran TAB] 4 mg PO Q8HR PRN #20 tablet PRN Reason: Nausea traMADol [Ultram] 50 mg PO Q6HR PRN #20 tablet PRN Reason: Pain Referrals: [facility] [Provider Group] - 3-5 Days [facility] [Outside] - 3-5 Days [facility] [Outside] - 3-5 Days Time of Disposition: 19:22 Print Language: ROMANIAN
--- NOTE | 2017-10-05 17:49 | Cat Scan Report ---
FINAL REPORT EXAM: CT ABDOMEN PELVIS W CON HISTORY: Abdominal Pain TECHNIQUE: CT abdomen and pelvis with intravenous contrast PRIORS: None. FINDINGS: No acute abnormality identified in the lung bases. No focal abnormality identified within the liver parenchyma. There prominence of the common bile duct measuring 0.9 centimeters.. The spleen demonstrates normal size and attenuation. No pancreatic abnormalities seen. The kidneys demonstrate symmetric contrast enhancement. No evidence of hydronephrosis. The adrenal glands are unremarkable Abdominal aorta is normal in caliber. No pathologically enlarged lymph nodes are identified. No signs of free fluid or free air No evidence of small bowel dilatation. Colon is nondistended. No pericolonic inflammatory change. Urinary bladder is unremarkable. IMPRESSION: Prominence of the common bile duct. If there is concern for biliary obstructive pathology followup MRCP could be obtained Otherwise negative study
[2017-10-05] MEDS ORDERED: MORPHINE ONE (18:38)
[2017-10-05] MEDS ORDERED: APRESOLINE IV ONE (18:55)
[2017-10-05 19:44] VITALS: BP 147/87
== END 2017-10-05 19:50 | disposition home or self-care (01) ==
LOC: ED 10:39
DX: I10 Essential (primary) hypertension (principal); M54.9 Dorsalgia, unspecified; G89.29 Other chronic pain
CPT/HCPCS: 36415; 71045; 74177; 80048; 80074; 81001; 82150; 83690; 85025; 96374; 96375; 96376; 99284; J2270; J2405; Q9967

== ENCOUNTER 2018-01-20 07:44 | Emergency (ER) | payer SELFPAY ==
[2018-01-20 07:50] VITALS: BP 137/91
[2018-01-20] MEDS ORDERED: MOTRIN PO ONE (08:04)
--- NOTE | 2018-01-20 08:24 | Emergency Department Report ---
ED Lower Extremity HPI - General Chief Complaint: Extremity Injury, Lower Stated Complaint: KNEE PAIN Time Seen by Provider: 01/20/18 08:00 Source: patient Mode of arrival: Ambulatory Limitations: No Limitations - History of Present Illness Initial Comments: This is a 58-year-old male nontoxic, well nourished in appearance, no acute signs of distress presents to the ED with c/o of acute on chronic bilateral knee pain. 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 Patient deneis any trauma to the knees. Patient denies any joint redness, joint swelling, fever, chills, nausea, vomiting, chest pain or shortness breath. Patient denies abnormal or decreased gait. Patient stated allergies to acetaminophen, aspirin, Flexeril, and Propxyphine. Patient stated does take OTC Motrin with no allergies. MD Complaint: knee injury -: week(s) (1) Injury: Knee: Right, Left Place: work Severity: mild Severity scale (0 -10): 8 Improves With: immobilization Worsens With: movement, palpation Associated Symptoms: ambulatory. denies: snap/pop sensation, swelling, numbness , tingling, unable to bear weight, able to partially bear weight - Related Data Previous Rx's Medication Instructions Recorded Last Taken Type Ibuprofen [Motrin 600 MG tab] 600 mg PO Q8H PRN #20 tablet 03/18/17 Unknown Rx predniSONE [Deltasone] 20 mg PO BID #10 tab 03/18/17 Unknown Rx Lansoprazole [Prevacid] 15 mg PO BID #30 cap 04/30/17 Unknown Rx traMADol [Ultram] 50 mg PO Q6HR PRN #14 tablet 04/30/17 Unknown Rx Ondansetron [Zofran TAB] 4 mg PO Q8HR PRN #20 tablet 10/05/17 Unknown Rx traMADol [Ultram] 50 mg PO Q6HR PRN #20 tablet 10/05/17 Unknown Rx Ibuprofen [Motrin] 600 mg PO Q8H PRN #30 tablet 01/20/18 Unknown Rx Allergies Allergy/AdvReac Type Severity Reaction Status Date / Time acetaminophen Allergy Seizure Verified 04/30/17 09:56 [From Cesart-N] aspirin Allergy Itching Verified 05/27/18 07:47 cyclobenzaprine HCl Allergy Itching Verified 04/30/17 09:56 [From Flexeril] propoxyphene napsylate Allergy Seizure Verified 04/30/17 09:56 [From Darvocet-N] ED Review of Systems ROS: Stated complaint: KNEE PAIN Other details as noted in HPI Constitutional: denies: chills, fever Eyes: denies: eye pain, eye discharge, vision change ENT: denies: ear pain, throat pain Respiratory: denies: cough, shortness of breath, wheezing Cardiovascular: denies: chest pain, palpitations Endocrine: no symptoms reported Gastrointestinal: denies: abdominal pain, nausea, diarrhea Genitourinary: denies: urgency, dysuria Musculoskeletal: arthralgia. denies: back pain, joint swelling Skin: denies: rash, lesions Neurological: denies: headache, weakness, paresthesias Psychiatric: denies: anxiety, depression Hematological/Lymphatic: denies: easy bleeding, easy bruising ED Past Medical Hx - Past Medical History Hx Hypertension: Yes (NONCOMPLIANT W/ MEDS) Hx Arthritis: Yes (KNEES) Hx COPD: Yes Additional medical history: CHRONIC BACK PAIN, Abdominal aneurysm - Social History Smoking Status: Never Smoker Substance Use Type: Alcohol - Medications Home Medications: Home Medications Medication Instructions Recorded Confirmed Last Taken Type Ibuprofen [Motrin 600 MG tab] 600 mg PO Q8H PRN #20 tablet 03/18/17 Unknown Rx predniSONE [Deltasone] 20 mg PO BID #10 tab 03/18/17 Unknown Rx Lansoprazole [Prevacid] 15 mg PO BID #30 cap 04/30/17 Unknown Rx traMADol [Ultram] 50 mg PO Q6HR PRN #14 tablet 04/30/17 Unknown Rx Ondansetron [Zofran TAB] 4 mg PO Q8HR PRN #20 tablet 10/05/17 Unknown Rx traMADol [Ultram] 50 mg PO Q6HR PRN #20 tablet 10/05/17 Unknown Rx Ibuprofen [Motrin] 600 mg PO Q8H PRN #30 tablet 01/20/18 Unknown Rx ED Physical Exam - General Limitations: No Limitations General appearance: alert, in no apparent distress - Head Head exam: Present: atraumatic, normocephalic - Eye Eye exam: Present: normal appearance Pupils: Present: normal accommodation - ENT ENT exam: Present: normal exam, mucous membranes moist - Neck Neck exam: Present: normal inspection, full ROM. Absent: tenderness, meningismus, lymphadenopathy - Respiratory Respiratory exam: Present: normal lung sounds bilaterally. Absent: respiratory distress, wheezes, rales, rhonchi, stridor - Cardiovascular Cardiovascular Exam: Present: regular rate, normal rhythm, normal heart sounds. Absent: irregular rhythm, systolic murmur, diastolic murmur, rubs, gallop - GI/Abdominal GI/Abdominal exam: Present: soft, normal bowel sounds - Rectal Rectal exam: Present: deferred - Extremities Exam Extremities exam: Present: normal inspection, full ROM, tenderness, normal capillary refill. Absent: pedal edema, joint swelling, calf tenderness - Expanded Lower Extremity Exam Left Hip exam: Present: normal inspection (bilateral exam), full ROM Upper Leg exam: Present: normal inspection (bilateral exam), full ROM Knee exam: Present: normal inspection (bilateral exam), full ROM, tenderness, full knee extension. Absent: swelling, laceration, ecchymosis, deformity, crepidus, dislocation, erythema, pain w/ pronation/supination, posterior draw sign, pain/laxity with valgus, pain/laxity with varus Lower Leg exam: Present: normal inspection (bilateral exam), full ROM. Absent: tenderness, swelling, abrasion, laceration, ecchymosis, deformity, crepidus, dislocation, erythema, palpable cord, Matteo's sign Ankle exam: Present: normal inspection (bilateral exam), full ROM. Absent: tenderness, swelling Foot/Toe exam: Present: normal inspection (bilateral exam), full ROM Neuro vascular tendon exam: Present: no vascular compromise (bilateral exam). Absent: pulse deficit, abnormal cap refill, motor deficit, sensory deficit, tendon deficit, extremity cold to touch, pallor, abnormal 2-point discrimination , decreased fine/light touch, foot drop, peroneal nerve deficit, significant pain with passive ROM of distal joint Gait: Positive: observed and normal (bilateral exam) - Back Exam Back exam: Present: normal inspection, full ROM - Neurological Exam Neurological exam: Present: alert, oriented X3, normal gait - Psychiatric Psychiatric exam: Present: normal affect, normal mood - Skin Skin exam: Present: warm, dry, intact, normal color. Absent: rash ED Course Vital Signs 01/20/18 07:47 Temperature 98.0 F Pulse Rate 60 Respiratory 18 Rate Blood Pressure 137/91 O2 Sat by Pulse 98 Oximetry - Reevaluation(s) Reevaluation #1: 01/20/18 08:25 Patient is speaking in full sentences with no signs of distress noted. ED Lower Extremity MDM - Medical Decision Making This is a 58-year-old male that presents with bilateral knee strain. Patient is stable and was examined by me. I referred patient to an orthopedic doctor for further evaluation for possible MRI. X-ray has been obtained and dictated by the radiologist. Patient is notified of the x-ray report with noted by the patient. Patient does have normal gait with no tenderness and no joint swelling. No ecchymosis. no joint redness or swelling. Not warm to touch. No signs of cellulites present. Patient was instructed to RICE therapy. Patient received Motrin for pain which he stated to me that he does not have any allergies to Motrin and has been taking 800 mg. Patient is discharged with Motrin. At time of discharge, the patient does not seem toxic or ill in appearance. No acute signs of distress noted. Patient agrees to discharge treatment plan of care. No further questions noted by the patient. Critical care attestation.: If time is entered above; I have spent that time in minutes in the direct care of this critically ill patient, excluding procedure time. ED Disposition Clinical Impression: Strain of knee, bilateral Disposition: DC-01 TO HOME OR SELFCARE Is pt being admited?: No Does the pt Need Aspirin: No Condition: Stable Instructions: Knee Pain (ED), RICE Therapy (ED), Ibuprofen (By mouth) Additional Instructions: Follow-up with a orthopedic doctor in 3-5 days or if symptoms worsen and continue return to emergency room as soon as possible. Prescriptions: Ibuprofen [Motrin] 600 mg PO Q8H PRN #30 tablet PRN Reason: Pain Referrals: PRIMARY CARE, [Primary Care Provider] - 3-5 Days NORMAN ELI MD [Staff Physician] - 3-5 Days [facility] [Outside] - 3-5 Days KUSH HERMAN MD [Staff Physician] - 3-5 Days
--- NOTE | 2018-01-23 12:57 | XRay Report ---
BILATERAL KNEES, 3 VIEWS History: Bilateral knee pain. Findings: Normal bone mineralization. Minimal osteoarthritic changes are identified in both knees which appear appropriate for this persons age. No evidence for is advanced joint pathology, fracture, bone lesion or joint effusion. Impression: Minimal osteoarthritis.
== END 2018-01-20 10:09 | disposition home or self-care (01) ==
LOC: ED 07:44
DX: S86.812A Strain of other muscle(s) and tendon(s) at lower leg level, left leg, initial encounter (principal); S86.811A Strain of other muscle(s) and tendon(s) at lower leg level, right leg, initial encounter; X58.XXXA Exposure to other specified factors, initial encounter; Y93.89 Activity, other specified; Y92.69 Other specified industrial and construction area as the place of occurrence of the external cause; Y99.8 Other external cause status
CPT/HCPCS: 99283

== ENCOUNTER 2018-04-14 12:58 | Emergency (ER) | payer SELFPAY ==
[2018-04-14 13:10] VITALS: BP 143/83
[2018-04-14] MEDS ORDERED: DELTASONE PO ONE (14:54)
[2018-04-14] MEDS ORDERED: DUONEB *Not for PRN Use IH ONE (14:54)
[2018-04-14] MEDS ORDERED: KEFLEX PO ONE (14:54)
[2018-04-14] MEDS ORDERED: ULTRAM PO ONE (14:55)
--- NOTE | 2018-04-14 15:00 | Emergency Department Report ---
- General Chief Complaint: Upper Respiratory Infection Stated Complaint: CHEST PAIN SOB Time Seen by Provider: 04/14/18 14:36 Source: patient Mode of arrival: Ambulatory Limitations: No Limitations - History of Present Illness Initial Comments: 58 yo male with hx of COPD. Unable to afford home medications including albuterol. Presents with shortness of breath, wheezing, Pain with cough. + productive cough MD Complaint: cough -: days(s) (5) Severity: mild, moderate, severe Consistency: constant Improves With: nothing Associated Symptoms: fever, chills, shortness of breath - Related Data Previous Rx's Medication Instructions Recorded Last Taken Type Ibuprofen [Motrin 600 MG tab] 600 mg PO Q8H PRN #20 tablet 03/18/17 Unknown Rx predniSONE [Deltasone] 20 mg PO BID #10 tab 03/18/17 Unknown Rx Lansoprazole [Prevacid] 15 mg PO BID #30 cap 04/30/17 Unknown Rx traMADol [Ultram] 50 mg PO Q6HR PRN #14 tablet 04/30/17 Unknown Rx Ondansetron [Zofran TAB] 4 mg PO Q8HR PRN #20 tablet 10/05/17 Unknown Rx traMADol [Ultram] 50 mg PO Q6HR PRN #20 tablet 10/05/17 Unknown Rx Ibuprofen [Motrin] 600 mg PO Q8H PRN #30 tablet 01/20/18 Unknown Rx Cephalexin [Keflex] 500 mg PO QID 7 Days #28 capsule 04/14/18 Unknown Rx predniSONE [Deltasone] 60 mg PO QDAY 5 Days #15 tab 04/14/18 Unknown Rx Allergies Allergy/AdvReac Type Severity Reaction Status Date / Time acetaminophen Allergy Seizure Verified 04/14/18 13:07 [From Darvocet-N] aspirin Allergy Itching Verified 04/14/18 13:07 cyclobenzaprine HCl Allergy Itching Verified 04/14/18 13:07 [From Flexeril] propoxyphene napsylate Allergy Seizure Verified 04/14/18 13:07 [From Darvocet-N] ED Review of Systems ROS: Stated complaint: CHEST PAIN SOB Other details as noted in HPI Comment: All other systems reviewed and negative Constitutional: denies: fever, malaise Respiratory: cough, SOB at rest, wheezing Cardiovascular: chest pain ED Past Medical Hx - Past Medical History Hx Hypertension: Yes Hx Arthritis: Yes (KNEES) Hx COPD: Yes Additional medical history: CHRONIC BACK PAIN, Abdominal aneurysm - Social History Smoking Status: Never Smoker Substance Use Type: None - Medications Home Medications: Home Medications Medication Instructions Recorded Confirmed Last Taken Type Ibuprofen [Motrin 600 MG tab] 600 mg PO Q8H PRN #20 tablet 03/18/17 Unknown Rx predniSONE [Deltasone] 20 mg PO BID #10 tab 03/18/17 Unknown Rx Lansoprazole [Prevacid] 15 mg PO BID #30 cap 04/30/17 Unknown Rx traMADol [Ultram] 50 mg PO Q6HR PRN #14 tablet 04/30/17 Unknown Rx Ondansetron [Zofran TAB] 4 mg PO Q8HR PRN #20 tablet 10/05/17 Unknown Rx traMADol [Ultram] 50 mg PO Q6HR PRN #20 tablet 10/05/17 Unknown Rx Ibuprofen [Motrin] 600 mg PO Q8H PRN #30 tablet 01/20/18 Unknown Rx Cephalexin [Keflex] 500 mg PO QID 7 Days #28 capsule 04/14/18 Unknown Rx predniSONE [Deltasone] 60 mg PO QDAY 5 Days #15 tab 04/14/18 Unknown Rx ED Physical Exam - General Limitations: No Limitations General appearance: alert, in no apparent distress, other (speaking full word sentences, appears comfortable) - Head Head exam: Present: atraumatic, normocephalic - Eye Eye exam: Present: normal appearance - ENT ENT exam: Present: mucous membranes moist - Neck Neck exam: Present: normal inspection. Absent: tenderness, meningismus - Respiratory Respiratory exam: Present: wheezes, prolonged expiratory. Absent: rales, rhonchi, stridor, chest wall tenderness, accessory muscle use, decreased breath sounds - Cardiovascular Cardiovascular Exam: Present: regular rate, normal rhythm. Absent: systolic murmur, diastolic murmur, rubs, gallop - GI/Abdominal GI/Abdominal exam: Present: soft, normal bowel sounds. Absent: distended, tenderness, guarding, rebound - Rectal Rectal exam: Present: deferred - Extremities Exam Extremities exam: Present: normal inspection - Back Exam Back exam: Present: normal inspection - Neurological Exam Neurological exam: Present: alert, oriented X3 - Psychiatric Psychiatric exam: Present: normal affect, normal mood - Skin Skin exam: Present: warm, dry, intact, normal color. Absent: rash ED Course Vital Signs 04/14/18 13:07 Temperature 97.9 F Pulse Rate 67 Respiratory 18 Rate Blood Pressure 143/83 O2 Sat by Pulse 97 Oximetry ED Medical Decision Making - EKG Data EKG shows normal: sinus rhythm, axis, intervals, QRS complexes Rate: normal - EKG Data Interpretation: no acute changes, normal EKG - Medical Decision Making acute mild COPD exacerbation rx: prednisone, cephalexin Critical care attestation.: If time is entered above; I have spent that time in minutes in the direct care of this critically ill patient, excluding procedure time. ED Disposition Clinical Impression: Acute exacerbation of chronic obstructive pulmonary disease (COPD) Disposition: - TO HOME OR SELFCARE Is pt being admited?: No Does the pt Need Aspirin: No Condition: Stable Instructions: Chronic Obstructive Pulmonary Disease (ED) Prescriptions: Cephalexin [Keflex] 500 mg PO QID 7 Days #28 capsule predniSONE [Deltasone] 60 mg PO QDAY 5 Days #15 tab Referrals: PRIMARY CARE, [Primary Care Provider] - 3-5 Days Time of Disposition: 15:00
== END 2018-04-14 15:34 | disposition home or self-care (01) ==
LOC: ED 12:58
DX: J44.1 Chronic obstructive pulmonary disease with (acute) exacerbation (principal); M13.862 Other specified arthritis, left knee; M13.861 Other specified arthritis, right knee; Z79.899 Other long term (current) drug therapy; Z88.6 Allergy status to analgesic agent; Z88.8 Allergy status to other drugs, medicaments and biological substances
CPT/HCPCS: 93005; 93010; 94640; 99282; J7512

== ENCOUNTER 2018-04-29 06:08 | Emergency (ER) | payer SELFPAY ==
[2018-04-29] MEDS ORDERED: NACL 0.9% 1000 ML 1,000 ML IV ONE (07:13)
[2018-04-29] MEDS ORDERED: DUONEB *Not for PRN Use IH ONE (07:19)
[2018-04-29] MEDS ORDERED: SOLU-Medrol IV ONE (07:21)
[2018-04-29] MEDS ORDERED: MORPHINE ONE (08:22)
[2018-04-29] MEDS ORDERED: MORPHINE IV ONE ×2 (08:28→09:27)
--- NOTE | 2018-04-29 08:38 | XRay Report ---
ROUTINE CHEST, TWO VIEWS: HISTORY: Short of breath, COPD. The trachea, heart, mediastinal contour, lung donnelly and bony thorax are unremarkable. No significant change since 10/05/17. IMPRESSION: Unremarkable chest x-ray.
--- NOTE | 2018-04-29 08:58 | Cat Scan Report ---
CT ABDOMEN PELVIS WITHOUT CONTRAST: HISTORY: abdominal pain. COMPARISON: 10/05/17. TECHNIQUE: Helical CT in 1.25mm intervals without IV contrast. Sagittal and coronal reconstructions. FINDINGS: Lung bases: Normal. Liver: Normal. Biliary system: Normal. Pancreas: Normal. Spleen: Normal. Kidneys/ureters/bladder: Normal. Adrenal glands: Normal. Aorta: Mild to moderate atherosclerotic disease is noted the abdominal aorta. There is minimal infrarenal aneurysmal dilatation measuring a maximum of 2.6 cm. Intestines: Normal. Appendix: Normal. Ascites: None. Adenopathy: None. Musculoskeletal: Moderate thoracolumbar spondylosis. No fracture or suspicious bony lesion. IMPRESSION: No acute abdominal process identified.
[2018-04-29] MEDS ORDERED: ZOFRAN IV ONE (09:27)
[2018-04-29 10:20] LABS: Basophils # (Auto) 0.1 K/mm3 (0.0-0.1); Basophils % (Auto) 0.8 % (0.0-1.8); Eosinophils # (Auto) 0.2 K/mm3 (0.0-0.4); Eosinophils % (Auto) 2.6 % (0.0-4.3); Hematocrit 46.9 % (35.5-45.6); Hemoglobin 15.8 gm/dl (11.8-15.2); Lymphocytes # (Auto) 1.5 K/mm3 (1.2-5.4); Lymphocytes % (Auto) 22.9 % (13.4-35.0); Mean Corpuscular HGB Conc 34 % (32-34); Mean Corpuscular Hemoglobin 31 pg (28-32); Mean Corpuscular Volume 92 fl (84-94); Monocytes # (Auto) 0.3 K/mm3 (0.0-0.8); Platelet Count 212 K/mm3 (140-440); Red Blood Count 5.11 M/mm3 (3.65-5.03); Red Cell Distribution Width 13.2 % (13.2-15.2)
[2018-04-29 10:31] LABS: INR 0.94 (0.87-1.13)
[2018-04-29 10:32] LABS: Partial Thromboplastin Time 26.1 Sec. (24.2-36.6)
[2018-04-29 11:57] LABS: Alanine Aminotransferase 46 units/L (7-56); Albumin 4.4 g/dL (3.9-5); BUN/Creatinine Ratio 14; Blood Urea Nitrogen 10 mg/dL (9-20); Calcium 9.2 mg/dL (8.4-10.2); Hemolysis Index 40
[2018-04-29 12:00] LABS: Bilirubin,Direct < 0.2 mg/dL (0-0.2)
[2018-04-29 12:08] LABS: Bilirubin,Urine NEG (Negative); Blood,Urine NEG (Negative); Color,Urine Yellow (Yellow); Protein,Urine <15 mg/dL mg/dL (Negative); Urobilinogen,Urine < 2.0 mg/dL (<2.0); WBC,Urine < 1.0 /HPF (0.0-6.0)
--- NOTE | 2018-04-29 12:41 | Emergency Department Report ---
ED General Adult HPI - General Chief complaint: Abdominal Pain Stated complaint: STOMACH PAIN Time Seen by Provider: 04/29/18 07:16 Source: patient Mode of arrival: Ambulatory Limitations: No Limitations - History of Present Illness Initial comments: This is a 58-year-old male that reports to the emergency department with recurrent complaints. He states he has no primary care doctor. COPD. It appears that he has been previously treated with Prevacid analgesia for this symptom complex before. He said several negative CTs of the abdomen and pelvis. The area in question appears to be the left costal area which he repeatedly rubs. He does not describe his pain as chest pain. There is no arm or neck or back radiation. Is apparently tender to palpation. He denies vomiting or nausea. He's had no fever or chills. He is not coughing. The symptoms are really quite recurrent. He states he has had some wheezing. Seen this patient in the past for back and abdominal pain. He does appear to have chronic pain. -: days(s) Location: chest, abdomen Radiation: non-radiation Quality: aching Consistency: constant Improves with: none Worsens with: other (movement) Associated Symptoms: denies other symptoms Treatments Prior to Arrival: none - Related Data Previous Rx's Medication Instructions Recorded Last Taken Type Ibuprofen [Motrin 600 MG tab] 600 mg PO Q8H PRN #20 tablet 03/18/17 Unknown Rx predniSONE [Deltasone] 20 mg PO BID #10 tab 03/18/17 Unknown Rx Ondansetron [Zofran TAB] 4 mg PO Q8HR PRN #20 tablet 10/05/17 Unknown Rx traMADol [Ultram] 50 mg PO Q6HR PRN #20 tablet 10/05/17 Unknown Rx Ibuprofen [Motrin] 600 mg PO Q8H PRN #30 tablet 01/20/18 Unknown Rx Cephalexin [Keflex] 500 mg PO QID 7 Days #28 capsule 04/14/18 Unknown Rx Albuterol Sulfate [Ventolin HFA] 2 puff IH Q4H PRN #1 hfa.aer.ad 04/29/18 Unknown Rx Lansoprazole [Prevacid] 15 mg PO BID #30 cap 04/29/18 Unknown Rx predniSONE [Deltasone] 60 mg PO QDAY 5 Days #15 tab 04/29/18 Unknown Rx traMADol [Ultram 50 MG tab] 50 mg PO Q6HR PRN #14 tablet 04/29/18 Unknown Rx Allergies Allergy/AdvReac Type Severity Reaction Status Date / Time acetaminophen Allergy Seizure Verified 04/14/18 13:07 [From Darvocet-N] aspirin Allergy Itching Verified 04/14/18 13:07 cyclobenzaprine HCl Allergy Itching Verified 04/14/18 13:07 [From Flexeril] propoxyphene napsylate Allergy Seizure Verified 04/14/18 13:07 [From Darvocet-N] ED Review of Systems ROS: Stated complaint: STOMACH PAIN Other details as noted in HPI Constitutional: denies: chills, fever Eyes: denies: eye pain, eye discharge, vision change ENT: denies: ear pain, throat pain Respiratory: denies: cough, shortness of breath, wheezing Cardiovascular: denies: chest pain, palpitations Endocrine: no symptoms reported Gastrointestinal: as per HPI, abdominal pain. denies: nausea, diarrhea Genitourinary: denies: urgency, dysuria Musculoskeletal: denies: back pain, joint swelling, arthralgia Skin: denies: rash, lesions Neurological: denies: headache, weakness, paresthesias Psychiatric: denies: anxiety, depression Hematological/Lymphatic: denies: easy bleeding, easy bruising ED Past Medical Hx - Past Medical History Hx Hypertension: Yes Hx Arthritis: Yes (KNEES) Hx COPD: Yes Additional medical history: CHRONIC BACK PAIN, Abdominal aneurysm, hep C+ - Social History Smoking Status: Former Smoker Substance Use Type: Alcohol - Medications Home Medications: Home Medications Medication Instructions Recorded Confirmed Last Taken Type Ibuprofen [Motrin 600 MG tab] 600 mg PO Q8H PRN #20 tablet 03/18/17 Unknown Rx predniSONE [Deltasone] 20 mg PO BID #10 tab 03/18/17 Unknown Rx Ondansetron [Zofran TAB] 4 mg PO Q8HR PRN #20 tablet 10/05/17 Unknown Rx traMADol [Ultram] 50 mg PO Q6HR PRN #20 tablet 10/05/17 Unknown Rx Ibuprofen [Motrin] 600 mg PO Q8H PRN #30 tablet 01/20/18 Unknown Rx Cephalexin [Keflex] 500 mg PO QID 7 Days #28 capsule 04/14/18 Unknown Rx Albuterol Sulfate [Ventolin HFA] 2 puff IH Q4H PRN #1 hfa.aer.ad 04/29/18 Unknown Rx Lansoprazole [Prevacid] 15 mg PO BID #30 cap 04/29/18 Unknown Rx predniSONE [Deltasone] 60 mg PO QDAY 5 Days #15 tab 04/29/18 Unknown Rx traMADol [Ultram 50 MG tab] 50 mg PO Q6HR PRN #14 tablet 04/29/18 Unknown Rx ED Physical Exam - General Limitations: No Limitations General appearance: alert, in no apparent distress - Head Head exam: Present: atraumatic, normocephalic - Eye Eye exam: Present: normal appearance, PERRL, EOMI. Absent: scleral icterus - ENT ENT exam: Present: mucous membranes moist - Neck Neck exam: Present: normal inspection. Absent: tenderness, meningismus - Respiratory Respiratory exam: Present: normal lung sounds bilaterally, chest wall tenderness. Absent: respiratory distress - Cardiovascular Cardiovascular Exam: Present: regular rate, normal rhythm. Absent: systolic murmur, diastolic murmur, rubs, gallop - GI/Abdominal GI/Abdominal exam: Present: soft, normal bowel sounds. Absent: distended, tenderness, guarding, rebound, rigid - Rectal Rectal exam: Present: deferred - Extremities Exam Extremities exam: Present: normal inspection, normal capillary refill. Absent: tenderness, pedal edema, joint swelling, calf tenderness - Back Exam Back exam: Present: normal inspection. Absent: CVA tenderness (R), CVA tenderness (L), muscle spasm, paraspinal tenderness, vertebral tenderness - Neurological Exam Neurological exam: Present: alert, oriented X3, CN II-XII intact. Absent: motor sensory deficit - Psychiatric Psychiatric exam: Present: normal affect, normal mood - Skin Skin exam: Present: warm, dry, intact, normal color. Absent: rash ED Course Vital Signs 04/29/18 04/29/18 04/29/18 06:13 07:08 08:07 Temperature 97.9 F 97.9 F 97.7 F Pulse Rate 66 70 59 L Respiratory 18 24 24 Rate Blood Pressure 148/124 148/120 146/106 O2 Sat by Pulse 97 97 100 Oximetry 04/29/18 04/29/18 04/29/18 09:48 10:01 10:15 Temperature Pulse Rate 62 74 54 L Respiratory 21 11 L 9 L Rate Blood Pressure 162/97 141/111 O2 Sat by Pulse 97 98 Oximetry 04/29/18 04/29/18 04/29/18 10:31 10:45 11:01 Temperature Pulse Rate 61 67 61 Respiratory 11 L 7 L 22 Rate Blood Pressure 156/100 137/69 152/58 O2 Sat by Pulse 97 98 94 Oximetry 04/29/18 11:15 Temperature Pulse Rate 60 Respiratory 22 Rate Blood Pressure 152/58 O2 Sat by Pulse 96 Oximetry - Reevaluation(s) Reevaluation #1: Patient is given analgesia and an appendectomy. His wheezing did improve. He is appropriate for outpatient referral. 04/29/18 12:57 ED Medical Decision Making - Lab Data Result diagrams: 04/29/18 09:58 04/29/18 09:58 Laboratory Results - last 24 hr 04/29/18 04/29/18 04/29/18 09:58 09:58 09:58 WBC 6.7 RBC 5.11 H Hgb 15.8 H Hct 46.9 H MCV 92 MCH 31 MCHC 34 RDW 13.2 Plt Count 212 Lymph % (Auto) 22.9 [place] % (Auto) 4.0 Eos % (Auto) 2.6 Baso % (Auto) 0.8 Lymph # 1.5 [place] # 0.3 Eos # 0.2 Baso # 0.1 Seg Neutrophils % 69.7 Seg Neutrophils # 4.7 PT 13.1 INR 0.94 APTT 26.1 Sodium 138 Potassium 4.5 Chloride 100.8 Carbon Dioxide 20 L Anion Gap 22 BUN 10 Creatinine 0.7 L Estimated GFR > 60 BUN/Creatinine Ratio 14 Glucose 137 H Calcium 9.2 Total Bilirubin 0.70 Direct Bilirubin < 0.2 AST 40 ALT 46 Alkaline Phosphatase 67 Ammonia Total Creatine Kinase CK-MB (CK-2) CK-MB (CK-2) Rel Index Troponin T NT-Pro-B Natriuret Pep Total Protein 6.7 Albumin 4.4 Albumin/Globulin Ratio 1.9 Urine Color Urine Turbidity Urine pH Ur Specific [place] Urine Protein Urine Glucose (UA) Urine Ketones Urine Blood Urine Nitrite Urine Bilirubin Urine Urobilinogen Ur Leukocyte Esterase Urine WBC (Auto) Urine RBC (Auto) Blood Type Antibody Screen 04/29/18 04/29/18 04/29/18 09:58 09:58 09:58 WBC RBC Hgb Hct MCV MCH MCHC RDW Plt Count Lymph % (Auto) [place] % (Auto) Eos % (Auto) Baso % (Auto) Lymph # [place] # Eos # Baso # Seg Neutrophils % Seg Neutrophils # PT INR APTT Sodium Potassium Chloride Carbon Dioxide Anion Gap BUN Creatinine Estimated GFR BUN/Creatinine Ratio Glucose Calcium Total Bilirubin Direct Bilirubin AST ALT Alkaline Phosphatase Ammonia 48.0 Total Creatine Kinase 62 CK-MB (CK-2) 2.0 CK-MB (CK-2) Rel Index 3.2 Troponin T < 0.010 NT-Pro-B Natriuret Pep 121.9 Total Protein Albumin Albumin/Globulin Ratio Urine Color Urine Turbidity Urine pH Ur Specific [place] Urine Protein Urine Glucose (UA) Urine Ketones Urine Blood Urine Nitrite Urine Bilirubin Urine Urobilinogen Ur Leukocyte Esterase Urine WBC (Auto) Urine RBC (Auto) Blood Type A POSITIVE Antibody Screen Negative 04/29/18 11:45 WBC RBC Hgb Hct MCV MCH MCHC RDW Plt Count Lymph % (Auto) [place] % (Auto) Eos % (Auto) Baso % (Auto) Lymph # [place] # Eos # Baso # Seg Neutrophils % Seg Neutrophils # PT INR APTT Sodium Potassium Chloride Carbon Dioxide Anion Gap BUN Creatinine Estimated GFR BUN/Creatinine Ratio Glucose Calcium Total Bilirubin Direct Bilirubin AST ALT Alkaline Phosphatase Ammonia Total Creatine Kinase CK-MB (CK-2) CK-MB (CK-2) Rel Index Troponin T NT-Pro-B Natriuret Pep Total Protein Albumin Albumin/Globulin Ratio Urine Color Yellow Urine Turbidity Clear Urine pH 8.0 H Ur Specific [place] 1.010 Urine Protein <15 mg/dl Urine Glucose (UA) Neg Urine Ketones Neg Urine Blood Neg Urine Nitrite Neg Urine Bilirubin Neg Urine Urobilinogen < 2.0 Ur Leukocyte Esterase Neg Urine WBC (Auto) < 1.0 Urine RBC (Auto) 1.0 Blood Type Antibody Screen - EKG Data -: EKG Interpreted by Me EKG shows normal: sinus rhythm, axis, intervals, QRS complexes, ST-T waves Rate: normal - EKG Data Interpretation: no acute changes, other (low-voltage) - Radiology Data Radiology results: report reviewed interpreted by me: No acute findings Critical care attestation.: If time is entered above; I have spent that time in minutes in the direct care of this critically ill patient, excluding procedure time. ED Disposition Clinical Impression: Chest wall pain, COPD exacerbation Disposition: TO HOME OR SELFCARE Is pt being admited?: No Does the pt Need Aspirin: No Condition: Stable Instructions: Chest Pain (ED), Chronic Obstructive Pulmonary Disease (ED) Additional Instructions: Follow-up with primary care is strongly recommended. See referral. Return to the emergency department for any acute change or problem. Long-term problems can best be addressed in the primary care setting. Rx for pain, a steroid for your COPD and an inhaler. Prescriptions: Albuterol Sulfate [Ventolin HFA] 2 puff IH Q4H PRN #1 hfa.aer.ad PRN Reason: Shortness Of Breath Lansoprazole [Prevacid] 15 mg PO BID #30 cap predniSONE [Deltasone] 60 mg PO QDAY 5 Days #15 tab traMADol [Ultram 50 MG tab] 50 mg PO Q6HR PRN #14 tablet PRN Reason: Pain Referrals: [facility] [Provider Group] - 2-3 Days Time of Disposition: 12:59
[2018-04-29 13:01] LABS: Amphetamine Screen,Urine PRESUMPTIVE NEGATIVE; Benzodiazepines Screen,Urine PRESUMPTIVE NEGATIVE; Cocaine Screen,Urine PRESUMPTIVE NEGATIVE; Methadone Screen,Urine PRESUMPTIVE NEGATIVE; Opiate Screen,Urine PRESUMPTIVE NEGATIVE
[2018-04-29 13:30] LABS: Cannabinoid Screen,Urine PRESUMPTIVE POSITIVE
[2018-04-29 14:21] VITALS: BP 145/81
== END 2018-04-29 13:20 | disposition home or self-care (01) ==
LOC: ED 06:08
DX: J44.1 Chronic obstructive pulmonary disease with (acute) exacerbation (principal); R07.89 Other chest pain; I10 Essential (primary) hypertension; G89.29 Other chronic pain; M13.862 Other specified arthritis, left knee; M13.861 Other specified arthritis, right knee; Z87.891 Personal history of nicotine dependence; Z88.6 Allergy status to analgesic agent; Z88.8 Allergy status to other drugs, medicaments and biological substances
CPT/HCPCS: 36415; 71046; 74176; 80053; 80307; 81001; 82140; 82248; 82550; 82553; 83880; 84484; 85025; 85610; 85730; 86850; 86900; 86901; 96374; 96375; 96376; 99284; J2270; J2405; J2930; J7030

== ENCOUNTER 2019-09-14 06:41 | Emergency (ER) | payer MEDICARE ==
[2019-09-14 06:56] VITALS: BP 178/94
--- NOTE | 2019-09-14 09:07 | Emergency Department Report ---
ED Back Pain/Injury HPI - General Chief Complaint: Back Pain/Injury Stated Complaint: BACK PAIN Time Seen by Provider: 09/14/19 09:02 Source: patient Limitations: Physical Limitation - History of Present Illness Initial Comments: This is a 59-year-old male complaining of mid lower back 4 days no recent falls or injuries. He is also complaining of urinary frequency. Patient does report a long history of chronic back pain. Patient denies abdominal pain, no bowel or bladder incontinence, no freqent urination, fever chills chest pain and shortness of breath. -: days(s) (4) Quality: aching Consistency: constant Improves With: none Worsens With: movement Associated Symptoms: denies: confusion, weakness, chest pain, numbness, cough, fever/chills, constipation, abdominal pain, nausea/vomiting, rash, seizure, shortness of breath - Related Data Previous Rx's Medication Instructions Recorded Last Taken Type Ibuprofen [Motrin 600 MG tab] 600 mg PO Q8H PRN #20 tablet 03/18/17 Unknown Rx predniSONE [Deltasone] 20 mg PO BID #10 tab 03/18/17 Unknown Rx Ondansetron [Zofran TAB] 4 mg PO Q8HR PRN #20 tablet 10/05/17 Unknown Rx traMADoL [Ultram] 50 mg PO Q6HR PRN #20 tablet 10/05/17 Unknown Rx Ibuprofen [Motrin] 600 mg PO Q8H PRN #30 tablet 01/20/18 Unknown Rx Cephalexin [Keflex] 500 mg PO QID 7 Days #28 capsule 04/14/18 Unknown Rx Albuterol Sulfate [Ventolin HFA] 2 puff IH Q4H PRN #1 hfa.aer.ad 04/29/18 Unknown Rx predniSONE [Deltasone] 60 mg PO QDAY 5 Days #15 tab 04/29/18 Unknown Rx traMADoL [Ultram 50 MG tab] 50 mg PO Q6HR PRN #14 tablet 04/29/18 Unknown Rx Ciprofloxacin HCl [Ciprofloxacin 500 mg PO Q12H #12 tab 08/24/18 Unknown Rx TAB] Ipratropium [Atrovent NEB] 0.5 mg IH Q8HRT #1 box 08/24/18 Unknown Rx Nebulizer and Compressor [[place] 1 each MC TID PRN #1 each 08/24/18 Unknown Rx Choice Nebulizer] Prednisone [predniSONE 10 mg 10 mg PO .TAPER #1 tab.ds.pk 08/24/18 Unknown Rx (6-Day Pack, 21 Tabs)] Albuterol INH(or & Nicu Only) 2 puff IH QID PRN #1 inhalation 03/22/19 Unknown Rx [ProAir HFA Inhaler] Albuterol Sulfate [Albuterol 0.63% 0.63 mg IH TID PRN #1 box 03/22/19 Unknown Rx NEBS] HYDROcodone/APAP 5-325 [[place] 1 each PO Q6HR PRN #20 tablet 03/22/19 Unknown Rx 5/325] Lansoprazole [Prevacid] 15 mg PO BID #30 cap 03/22/19 Unknown Rx Lisinopril/Hydrochlorothiazide 1 tab PO QDAY #30 tab 03/22/19 Unknown Rx [Zestoretic 20-25 mg] Ondansetron [Zofran Odt] 4 mg PO Q8HR PRN #20 tab.rapdis 03/22/19 Unknown Rx traMADoL [Ultram] 50 mg PO Q6HR PRN #20 tablet 09/14/19 Unknown Rx Allergies Allergy/AdvReac Type Severity Reaction Status Date / Time acetaminophen Allergy Seizure Verified 04/14/18 13:07 [From Darvocet-N] aspirin Allergy Itching Verified 04/14/18 13:07 cyclobenzaprine HCl Allergy Itching Verified 04/14/18 13:07 [From Flexeril] propoxyphene napsylate Allergy Seizure Verified 04/14/18 13:07 [From Darvocet-N] ED Review of Systems ROS: Stated complaint: BACK PAIN Other details as noted in HPI Comment: All other systems reviewed and negative Constitutional: no symptoms reported ENT: denies: ear pain, throat pain Respiratory: no symptoms reported Cardiovascular: denies: chest pain, palpitations Gastrointestinal: denies: abdominal pain, nausea, vomiting Musculoskeletal: back pain (mid low back pain ) Skin: as per HPI. denies: rash, lesions Neurological: denies: headache, weakness ED Past Medical Hx - Past Medical History Previous Medical History?: Yes Hx Hypertension: Yes Hx GERD: Yes Hx Liver Disease: Yes (hep C) Hx Arthritis: Yes (KNEES) Hx COPD: Yes (no home O2) Additional medical history: CHRONIC BACK PAIN, Abdominal aneurysm (not seen on ct 03/22/19), DDD, sciatica, deviated septum - Surgical History Past Surgical History?: Yes Additional Surgical History: left ankle. nose surgery x 3 - Social History Smoking Status: Light Tobacco Smoker - Medications Home Medications: Home Medications Medication Instructions Recorded Confirmed Last Taken Type Ibuprofen [Motrin 600 MG tab] 600 mg PO Q8H PRN #20 tablet 03/18/17 Unknown Rx predniSONE [Deltasone] 20 mg PO BID #10 tab 03/18/17 Unknown Rx Ondansetron [Zofran TAB] 4 mg PO Q8HR PRN #20 tablet 10/05/17 Unknown Rx traMADoL [Ultram] 50 mg PO Q6HR PRN #20 tablet 10/05/17 Unknown Rx Ibuprofen [Motrin] 600 mg PO Q8H PRN #30 tablet 01/20/18 Unknown Rx Cephalexin [Keflex] 500 mg PO QID 7 Days #28 capsule 04/14/18 Unknown Rx Albuterol Sulfate [Ventolin HFA] 2 puff IH Q4H PRN #1 hfa.aer.ad 04/29/18 Unknown Rx predniSONE [Deltasone] 60 mg PO QDAY 5 Days #15 tab 04/29/18 Unknown Rx traMADoL [Ultram 50 MG tab] 50 mg PO Q6HR PRN #14 tablet 04/29/18 Unknown Rx Ciprofloxacin HCl [Ciprofloxacin 500 mg PO Q12H #12 tab 08/24/18 Unknown Rx TAB] Ipratropium [Atrovent NEB] 0.5 mg IH Q8HRT #1 box 08/24/18 Unknown Rx Nebulizer and Compressor [[place] 1 each MC TID PRN #1 each 08/24/18 Unknown Rx Choice Nebulizer] Prednisone [predniSONE 10 mg 10 mg PO .TAPER #1 tab.ds.pk 08/24/18 Unknown Rx (6-Day Pack, 21 Tabs)] Albuterol INH(or & Nicu Only) 2 puff IH QID PRN #1 inhalation 03/22/19 Unknown Rx [ProAir HFA Inhaler] Albuterol Sulfate [Albuterol 0.63% 0.63 mg IH TID PRN #1 box 03/22/19 Unknown Rx NEBS] HYDROcodone/APAP 5-325 [[place] 1 each PO Q6HR PRN #20 tablet 03/22/19 Unknown Rx 5/325] Lansoprazole [Prevacid] 15 mg PO BID #30 cap 03/22/19 Unknown Rx Lisinopril/Hydrochlorothiazide 1 tab PO QDAY #30 tab 03/22/19 Unknown Rx [Zestoretic 20-25 mg] Ondansetron [Zofran Odt] 4 mg PO Q8HR PRN #20 tab.rapdis 03/22/19 Unknown Rx traMADoL [Ultram] 50 mg PO Q6HR PRN #20 tablet 09/14/19 Unknown Rx ED Physical Exam - General Limitations: Physical Limitation General appearance: alert, in no apparent distress - Head Head exam: Present: atraumatic - Eye Eye exam: Present: normal appearance - ENT ENT exam: Present: normal exam - Neck Neck exam: Present: normal inspection - Respiratory Respiratory exam: Present: normal lung sounds bilaterally. Absent: respiratory distress, wheezes, rales, rhonchi - Cardiovascular Cardiovascular Exam: Present: regular rate, normal heart sounds - GI/Abdominal GI/Abdominal exam: Present: soft, other (large abdmoninal girth) - Back Exam Back exam: Present: normal inspection, tenderness (mid lower back spinal tenderness. ambulatory with cane), vertebral tenderness. Absent: CVA tenderness (R), CVA tenderness (L), muscle spasm - Neurological Exam Neurological exam: Present: alert, oriented X3 - Psychiatric Psychiatric exam: Present: normal affect - Skin Skin exam: Present: warm, dry, intact, normal color. Absent: rash ED Course Vital Signs 09/14/19 06:50 Temperature 97.9 F Pulse Rate 72 Respiratory 22 Rate Blood Pressure 178/94 O2 Sat by Pulse 96 Oximetry ED Medical Decision Making - Radiology Data Radiology results: report reviewed interpreted by me: XRAY L/S FINDINGS: The vertebral body heights and disc spaces are preserved. No fracture or spondylolisthesis. No significant spurring or arthritis. No bony abnormality identified. There is moderate vascular calcification with slight ectasia of the infrarenal aorta. Impression: Negative lumbar spine radiograph - Medical Decision Making 59-year-old male with a history of chronic back pain. Today he comes in complaining of lower back pain on exam he was positive for spinal tenderness. X-ray of the lumbar shows no acute findings. Urine done. He is negative for WBCs and RBCs. Patient states he is out of medications for his back pain. Patient will be discharged home with Ultram . He's taken Ultram in the past with no side effects. To follow-up with his primary care doctor. Critical Care Time: No Critical care attestation.: If time is entered above; I have spent that time in minutes in the direct care of this critically ill patient, excluding procedure time. ED Disposition Clinical Impression: Back pain Qualifiers: Back pain location: low back pain Chronicity: chronic Back pain laterality: midline Sciatica presence: without sciatica Qualified Code(s): M54.5 - Low back pain Disposition: - TO HOME OR SELFCARE Is pt being admited?: No Does the pt Need Aspirin: No Condition: Stable Instructions: Back Pain (ED) Additional Instructions: Rest, warm compress, gently stretching to for lower back . Follow up with your doctor in 3-5 days or sooner for any worsening symptoms Prescriptions: traMADoL [Ultram] 50 mg PO Q6HR PRN #20 tablet PRN Reason: Pain Referrals: ZAK FIGUEROA MD [Primary Care Provider] - 3-5 Days Time of Disposition: 10:31
[2019-09-14] MEDS ORDERED: oxyCODONE /ACETAMINOPHEN 5-325MG TAB PO ONE (09:08)
--- NOTE | 2019-09-14 09:48 | XRay Report ---
Lumbosacral spine, 3 views INDICATION: Low back pain FINDINGS: The vertebral body heights and disc spaces are preserved. No fracture or spondylolisthesis. No significant spurring or arthritis. No bony abnormality identified. There is moderate vascular ghada cification with slight ectasia of the infrarenal aorta. Impression: Negative lumbar spine radiograph. Signer Name: aDve Flores MD Signed: 09/14/2019 9:43 AM Workstation Name: [id number]
[2019-09-14 09:58] LABS: Bilirubin,Urine NEG (Negative); Blood,Urine NEG (Negative); Color,Urine Yellow (Yellow); Mucus,Urine FEW /HPF; Protein,Urine <15 mg/dL mg/dL (Negative); WBC,Urine < 1.0 /HPF (0.0-6.0)
== END 2019-09-14 10:40 | disposition home or self-care (01) ==
LOC: ED 06:41
DX: M54.5 Low back pain (principal); I10 Essential (primary) hypertension; K21.9 Gastro-esophageal reflux disease without esophagitis; M17.0 Bilateral primary osteoarthritis of knee; J44.9 Chronic obstructive pulmonary disease, unspecified; F17.200 Nicotine dependence, unspecified, uncomplicated
CPT/HCPCS: 72100; 81001; 99283